=== PATIENT | female | born 1975 | race Caucasian/White ===

== ENCOUNTER 2016-11-06 12:43 | Emergency (ER) | payer BC, OTHER ==
[~2016-11-06] VITALS: Ht 165.1 cm; Wt 55.2 kg
[~2016-11-06 12:43] MED LIST: ATV5 PO; CEFOXITIN IV 2,000 MG in DEXTROSE 5% 50ML 50 ML IV SCH; GABA-112 PO; LORA-741 PO; OMEP20TA14 PO; ONDA4TAB7 SL
[2016-11-06] MEDS ORDERED: MoRPHine SULFATE 4 MG/ML 1 ML CARP\\VIAL IV STA ×2 (13:13→15:25)
[2016-11-06] MEDS ORDERED: SODIUM CHLORIDE 0.9% 1000ML 1,000 ML IV STA (13:13)
[2016-11-06] MEDS ORDERED: ACETAMINOPHEN 500 MG TAB PO STA (13:13)
[2016-11-06] MEDS ORDERED: ONDANSETRON INJ 2 MG/ML 2 ML VIAL IV STA (13:13)
[2016-11-06] MEDS ORDERED: KETOROLAC TROMETHAMINE 30 MG/ML VIAL IV STA (13:13)
[2016-11-06 13:23] LABS: URINE APPEARANCE CLEAR (CLEAR); URINE BILIRUBIN NEG (NEG); URINE COLOR YELLOW; URINE NITRITE NEG (NEG); URINE PH 6.5 (4.5-7.5); URINE SPECIFIC GRAVITY 1.023 (1.000-1.030); UROBILINOGEN NEG (NEG); ZZUR CULT IF INDIC CLEAN CATCH NO
--- NOTE | 2016-11-06 13:23 | EMERGENCY ROOM VISIT NOTE ---
History Report prepared by Tamie: Seth Munoz Under the Supervision of: Dr. Alex Almeida M.D. First contact with patient: 13:03 Chief Complaint: BACK PAIN Stated Complaint: BACK AND SIDE PAIN History of Present Illness The patient is a 41 year old white female with a past medical history of UTI's who presents to the ED with a cc of worsening low back pain beginning this morning. Positive nausea, left flank pain. Negative fever, chills, numbness, tingling, urinary symptoms, bowel issues, vaginal bleeding or discharge, trauma. She says the pain was mild initially but is now "killing" her and sharp. The patient notes that her UTI's were not like her current symptoms. She took Advil with no relief. The patient is not on any blood thinners. Source of History: patient Onset: This morning Position: back (low) Symptom Intensity: "killing her" Quality: sharp Timing: worsening Associated Symptoms: + nausea, No fevers, No chills, No urinary symptoms, No numbness Note: Associated symptoms: Left flank pain, tingling, bowel issues, vaginal bleeding or discharge. Review of Systems See HPI for pertinent positives and negatives. A total of ten systems were reviewed and were otherwise negative. Past Medical & Surgical Medical Problems: (1) History of - tubal ligation (2) No chronic diseases present (3) No significant past medical history (4) UTI (urinary tract infection) (5) Vertigo Surgical Problems: (1) History of hysterectomy Family History Hypertension Seizures Social History Smoking Status: Never Smoker Alcohol Use: none Marital Status: Occupation Status: unemployed Current/Historical Medications Scheduled Cetirizine Hcl (Zyrtec), 10 MG PO DAILY Dicyclomine Hcl (Bentyl), 10 MG PO BID Gabapentin (Neurontin), 100 MG PO HS Lorazepam (Ativan *), 0.5 MG PO DAILY PRN Lorazepam (Ativan), 0.5 MG PO QAM Montelukast Sodium (Singulair), 10 MG PO QAM Omeprazole (Prilosec), 40 MG PO QAM Triamcinolone Acetonide (Nasal (Nasacort Allergy 24Hr), 1 SPRAY MADINA BID Allergies Coded Allergies: Dust (Verified Allergy, Unknown, ,, 11/06/16) Molds and Smuts (Verified Allergy, Unknown, ., 11/06/16) Physical Exam Vital Signs Date Time Temp Pulse Resp B/P (MAP) Pulse Ox O2 Delivery O2 Flow Rate FiO2 11/06/16 16:27 105 16 114/70 100 Room Air 11/06/16 14:42 92 18 108/64 100 Room Air 11/06/16 13:47 83 11/06/16 13:35 90 16 118/76 100 Room Air 11/06/16 12:59 36.3 112 22 119/83 100 Room Air Physical Exam GENERAL: Awake, alert, uncomfortable, in pain. HENT: Normocephalic, atraumatic. EYES: Sclera non-icteric. RESPIRATORY: CTAB, no rhonchi, wheezing, crackles CARDIAC: Regular and tachy, no MRG ABDOMEN: Soft, NTND, BS+ MSK: TTTP in left low back. No chest wall TTP, no LE edema. No erythema, calor or fluctuance. NEURO: GCS 15, CN 2-12 intact, moves all 4s on command. Neg straight leg raise, sensation and motor intact distally. SKIN: No rash or jaundice noted. Medical Decision & Procedures ER Provider Diagnostic Interpretation: US: Radiology results as stated below per my review and radiologist interpretation (RENAL)RETROPERITON COMP CLINICAL HISTORY: 41 years-old Female presenting with L sided flank pain. TECHNIQUE: Real-time grayscale and limited color Doppler ultrasound imaging of the kidneys and bladder was performed. COMPARISON: CT from 02/28/2012. FINDINGS: Right kidney: Normal echogenicity. Right kidney measures 12.0 cm. No hydronephrosis. No convincing evidence of calculus or mass. Normal perfusion. Left kidney: Normal echogenicity. Left kidney measures 11.2 cm. No hydronephrosis. No convincing evidence of calculus or mass. Normal perfusion. Bladder: Decompressed. Other: Incidental note made of prominent left ovary measuring 4.6 x 2.9 x 3.9 cm with multiple prominent peripheral follicles. Calculated left ovarian volume 27 mL. Blunted arterial and venous spectral Doppler waveforms within the ovarian parenchyma. IMPRESSION: 1. Mildly prominent left ovary with a volume of 27 mL, consistent with mild enlargement. Given the borderline nature of these findings, this is equivocal for ovarian torsion. Continued clinical follow-up with possible dedicated pelvic imaging could be considered as clinically warranted. 2. Normal kidneys. Electronically signed by: Blair Wylie M.D. 11/06/2016 2:30 PM Dictated Date/Time: 11/06/2016 2:26 PM Laboratory Results 11/06/16 13:27 Red Blood Count 4.35, Mean Corpuscular Volume 93.8, Mean Corpuscular Hemoglobin 32.2, Mean Corpuscular Hemoglobin Concent 34.3, Mean Platelet Volume 11.8, Neutrophils (%) (Auto) 86.5, Lymphocytes (%) (Auto) 7.0, Monocytes (%) (Auto) 5.7, Eosinophils (%) (Auto) 0.0, Basophils (%) (Auto) 0.2, Neutrophils # (Auto) 9.72, Lymphocytes # (Auto) 0.79, Monocytes # (Auto) 0.64, Eosinophils # (Auto) 0.00, Basophils # (Auto) 0.02 11/06/16 13:27 Test 11/06/16 13:16 11/06/16 13:27 Urine Color YELLOW Urine Appearance CLEAR (CLEAR) Urine pH 6.5 (4.5-7.5) Urine Specific Bedias 1.023 (1.000-1.030) Urine Protein NEG (NEG) Urine Glucose (UA) NEG (NEG) Urine Ketones TRACE (NEG) Urine Occult Blood NEG (NEG) Urine Nitrite NEG (NEG) Urine Bilirubin NEG (NEG) Urine Urobilinogen NEG (NEG) Urine Leukocyte Esterase NEG (NEG) Urine Test NEG (NEG) White Blood Count 11.24 K/uL (4.8-10.8) Red Blood Count 4.35 M/uL (4.2-5.4) Hemoglobin 14.0 g/dL (12.0-16.0) Hematocrit 40.8 % (37-47) Mean Corpuscular Volume 93.8 fL (80-100) Mean Corpuscular Hemoglobin 32.2 pg (25-34) Mean Corpuscular Hemoglobin Concent 34.3 g/dl (32-36) Platelet Count 219 K/uL (130-400) Mean Platelet Volume 11.8 fL (7.4-10.4) Neutrophils (%) (Auto) 86.5 % Lymphocytes (%) (Auto) 7.0 % Monocytes (%) (Auto) 5.7 % Eosinophils (%) (Auto) 0.0 % Basophils (%) (Auto) 0.2 % Neutrophils # (Auto) 9.72 K/uL (1.4-6.5) Lymphocytes # (Auto) 0.79 K/uL (1.2-3.4) Monocytes # (Auto) 0.64 K/uL (0.11-0.59) Eosinophils # (Auto) 0.00 K/uL (0-0.5) Basophils # (Auto) 0.02 K/uL (0-0.2) RDW Standard Deviation 43.8 fL (36.4-46.3) RDW Coefficient of Variation 12.6 % (11.5-14.5) Immature Granulocyte % (Auto) 0.6 % Immature Granulocyte # (Auto) 0.07 K/uL (0.00-0.02) Anion Gap 7.0 mmol/L (3-11) Est Creatinine Clear Calc Drug Dose 78.4 ml/min Estimated GFR () 101.5 Estimated GFR (Non- 87.6 BUN/Creatinine Ratio 17.6 (10-20) Calcium Level 8.6 mg/dl (8.5-10.1) Total Bilirubin 0.9 mg/dl (0.2-1) Direct Bilirubin 0.2 mg/dl (0-0.2) Aspartate Amino Transf (AST/SGOT) 10 U/L (15-37) Alanine Aminotransferase (ALT/SGPT) 18 U/L (12-78) Alkaline Phosphatase 38 U/L (45-117) Total Protein 7.2 gm/dl (6.4-8.2) Albumin 3.9 gm/dl (3.4-5.0) Lipase 114 U/L (73-393) Laboratory results reviewed by me Medications Administered Medications (Trade) Dose Ordered Sig/Holly Route Start Time Stop Time Status Last Admin Dose Admin Sodium Chloride 1,000 ml @ 999 mls/hr Q1H1M STAT IV 11/06/16 13:13 11/06/16 14:13 DC 11/06/16 13:30 999 MLS/HR Ketorolac Tromethamine (Toradol Inj) 30 mg NOW STAT IV 11/06/16 13:13 11/06/16 13:18 DC 11/06/16 13:31 30 MG Morphine Sulfate (MoRPHine SULFATE INJ) 4 mg NOW STAT IV 11/06/16 13:13 9/19/17 13:18 DC 11/06/16 13:31 4 MG Acetaminophen (Tylenol Tab) 1,000 mg NOW STAT PO 11/06/16 13:13 11/06/16 13:18 DC 11/06/16 13:30 1,000 MG Ondansetron HCl (Zofran Inj) 4 mg NOW STAT IV 11/06/16 13:13 11/06/16 13:18 DC 11/06/16 13:31 4 MG Morphine Sulfate (MoRPHine SULFATE INJ) 4 mg NOW STAT IV 11/06/16 15:25 11/06/16 15:26 DC 11/06/16 15:29 4 MG Ondansetron HCl (Zofran Inj) 4 mg STK-MED ONCE .ROUTE 11/06/16 15:28 11/06/16 15:29 DC 11/06/16 15:30 4 MG ED Course 1307: The patient was evaluated in room B9. A complete history and physical exam was performed. 1509: I reevaluated the patient and her pain has improved. The patient verbally expressed understanding and agreement of the treatment plan. The patient will be evaluated for further treatment. 1512: I discussed the patient with Dr. Bella MARTINEZ - he will evaluate the patient for further treatment. 1557: The trading assistant called and said there is no flow to the left ovary. Medical Decision The patient is a 41 year old white female with a past medical history of UTI's who presents to the ED with a cc of worsening low back pain beginning this morning. Positive nausea, left flank pain. Negative fever, chills, numbness, tingling, urinary symptoms, bowel issues, vaginal bleeding or discharge, trauma. Differential diagnosis: Etiologies such as renal colic, appendicitis, diverticulitis, mesenteric ischemia, aortic pathology, infections, inflammatory bowel disease, PUD, biliary pathology, UTI, as well as others were entertained. Patient was seen and evaluated the bedside. Patient was in moderate discomfort and severe pain. Patient and symptomatic control in addition to labs and an ultrasound completed. Patient's UA was negative for infection or blood. UPT negative. Patient's popliteal count 11,000. Patient ultrasound negative for any acute renal issue; however, noted to have enlarged left ovary which concerning for possible torsion. LIP READING TEACHER was consulted. Patient was reassessed pain had improved. Patient still reproducible tenderness to palpation however. Patient had a pelvic ultrasound was ordered. The health technician called me and stated the patient had no flow to the left ovary. This was relayed to the radiologist per the tech. WOOD BARREL RECONDITIONER and are getting consulted with a concern for torsion. Patient admitted by LIP READING TEACHER and taken to OR. Medication Reconcilliation Current Medication List: was personally reviewed by me Blood Pressure Screening Patient's blood pressure: Normal blood pressure Consults Time Called: 1500 Consulting Physician: Dr. Bella MARTINEZ Returned Call: 1512 I discussed the patient with Dr. Bella MARTINEZ - he will evaluate the patient for further treatment. Impression Primary Impression: Ovarian torsion Additional Impression: Abdominal pain Critical Care I have personally spent greater than 37 minutes of critical care time in the direct management of this patient. This includes bedside care, interpretation of diagnostic studies, and testing, discussion with consultants, patient, and family members, and other required patient management activities. This 37 minutes is in excess of all separately billable procedures. Scribe Attestation The scribe's documentation has been prepared under my direction and personally reviewed by me in its entirety. I confirm that the note above accurately reflects all work, treatment, procedures, and medical decision making performed by me. Departure Information Dispostion Being Evaluated By Hospitalist Patient Instructions My [facility] Problem Qualifiers Additional Impression: Abdominal pain Abdominal location: left lower quadrant Qualified Codes: R10.32 - Left lower quadrant pain
[2016-11-06 13:25] LABS: MANUAL MICROSCOPIC REQUIRED? NO; REVIEW REQ? NO
[2016-11-06 13:45] LABS: BASO % 0.2 %; BASO ABS # 0.02 K/uL (0-0.2); COMPLETE YES; HEMATOCRIT 40.8 % (37-47); IG% 0.6 %; LYMPH ABS # 0.79 K/uL (1.2-3.4); MEAN CELL VOLUME 93.8 fL (80-100); MEAN CORPUSCULAR HEMOGLOBIN 32.2 pg (25-34); MEAN CORPUSCULAR HGB CONC 34.3 g/dl (32-36); MEAN PLATELET VOLUME 11.8 fL (7.4-10.4); MONO % 5.7 %; NEUT % 86.5 %; PLATELET COUNT 219 K/uL (130-400); RED BLOOD COUNT 4.35 M/uL (4.2-5.4); WHITE BLOOD COUNT 11.24 K/uL (4.8-10.8)
[2016-11-06 14:02] LABS: BUN/CREATININE RATIO 17.6 (10-20); CALCIUM 8.6 mg/dl (8.5-10.1); CREATININE 0.84 mg/dl (0.60-1.20); POTASSIUM 3.7 mmol/L (3.5-5.1)
--- NOTE | 2016-11-06 14:31 | DIAGNOSTIC IMAGING REPORT ---
(RENAL)RETROPERITON COMP CLINICAL HISTORY: 41 years-old Female presenting with L sided flank pain. TECHNIQUE: Real-time grayscale and limited color Doppler ultrasound imaging of the kidneys and bladder was performed. COMPARISON: CT from 02/28/2012. FINDINGS: Right kidney: Normal echogenicity. Right kidney measures 12.0 cm. No hydronephrosis. No convincing evidence of calculus or mass. Normal perfusion. Left kidney: Normal echogenicity. Left kidney measures 11.2 cm. No hydronephrosis. No convincing evidence of calculus or mass. Normal perfusion. Bladder: Decompressed. Other: Incidental note made of prominent left ovary measuring 4.6 x 2.9 x 3.9 cm with multiple prominent peripheral follicles. Calculated left ovarian volume 27 mL. Blunted arterial and venous spectral Doppler waveforms within the ovarian parenchyma. IMPRESSION: 1. Mildly prominent left ovary with a volume of 27 mL, consistent with mild enlargement. Given the borderline nature of these findings, this is equivocal for ovarian torsion. Continued clinical follow-up with possible dedicated pelvic imaging could be considered as clinically warranted. 2. Normal kidneys. Electronically signed by: Blair Wylie M.D. 11/06/2016 2:30 PM Dictated Date/Time: 11/06/2016 2:26 PM
[2016-11-06] MEDS ORDERED: MoRPHine SULFATE 4 MG/ML 1 ML CARP\\VIAL ONE (15:21)
[2016-11-06] MEDS ORDERED: ONDANSETRON INJ 2 MG/ML 2 ML VIAL ONE ×3 (15:28→18:23)
[2016-11-06] MEDS ORDERED: CETI10TA10 PO (15:34)
[2016-11-06] MEDS ORDERED: PRLSR20 PO (15:34)
[2016-11-06] MEDS ORDERED: PSEU30LI NAE (15:34)
[2016-11-06] MEDS ORDERED: DICY10CA55 PO (15:34)
[2016-11-06] MEDS ORDERED: MONT1TAB3 PO (15:34)
[2016-11-06] MEDS ORDERED: TRIA1SPR4 NAE (15:36)
--- NOTE | 2016-11-06 16:11 | DIAGNOSTIC IMAGING REPORT ---
ULTRASOUND OF THE PELVIS CLINICAL HISTORY: Pelvic pain. COMPARISON STUDY: Pelvic CT dated 02/28/2012. Pelvic ultrasound dated 02/05/2010. TECHNIQUE: Real-time, grayscale, and color flow sonography of the pelvis is performed both endovaginally. Images are reviewed in the transverse and longitudinal planes. FINDINGS: Uterus: The uterus is surgically absent Ovaries: The right ovary is normal in size and morphology, measuring 3.7 x 2.2 x 2.2 cm. There are small right-sided ovarian follicles. Normal Doppler waveforms are present in the right ovary. The left ovary appears enlarged and heterogeneous, measuring 5.0 x 2.8 x 3.3 cm. Small left ovarian follicles are identified. Normal Doppler waveforms are absent within the left ovary. Pelvis: There is a small volume of free fluid in the cul-de-sac. No concerning adnexal lesion is seen. IMPRESSION: 1. The left ovary is enlarged and heterogeneous. Normal Doppler waveforms are not identified in the left ovary and the appearance is highly concerning for portion of the left ovary. Surgical consultation is advised. 2. The right ovary is normal in appearance. 3. The uterus is surgically absent. 4. There is a small volume of nonspecific free fluid in the cul-de-sac. Electronically signed by: Moshe Cid M.D. 11/06/2016 4:10 PM Dictated Date/Time: 11/06/2016 4:07 PM
[2016-11-06] MEDS ORDERED: LACTATED RINGER'S 1000ML 1,000 ML IV SCH (17:06)
[2016-11-06] MEDS ORDERED: BUPIVACAINE/EPINEPHRINE 0.5% MPF 1:200,000 30 ML VIAL ONE (17:14)
[2016-11-06 17:18] VITALS: Ht 165.1 cm; Wt 55.2 kg
[2016-11-06 17:25] VITALS: O2SAT 100
--- NOTE | 2016-11-06 17:38 | HISTORY & PHYSICAL EXAMINATION ---
DATE OF ADMISSION: 11/06/2016 HISTORY AND PHYSICAL AND CONSULTATION HISTORY OF PRESENT ILLNESS: The patient is a 41-year-old G2, P2 who presented to the ER today with complaints of left lower flank pain. She had nausea and vomiting with the pain. She had no fever, chills, numbness or tingling. She had no urinary tract infections whatsoever. She also denied vaginal discharge or bowel problems. She was worked up for the abdominal pain. The workup included a CBC, complete chemistry, urinalysis as well as a left renal ultrasound. Renal ultrasound was unremarkable, but however, showed an enlarged left ovary. Followup pelvic ultrasound was done and the pelvic ultrasound showed a large left ovary measuring 5 x 3 x 3. There was absent doppler flow in the left ovary. The diagnosis at this point is left ovarian torsion. The patient continues to have pain and has received several narcotics for pain. Discussed findings with patient and patient wishes to undergo left salpingo-oophorectomy. PAST MEDICAL HISTORY: 1. History of tubal ligation. 2. History of UTIs. 3. History of vertigo. PAST SURGICAL HISTORY: The patient has had hysterectomy in the past for menorrhagia, failed endometrial ablation. ALLERGIES: THE PATIENT IS ALLERGIC TO MOLD, DUST AND SMUTS. SOCIAL HISTORY: The patient denies tobacco, drug or alcohol use. MEDICATIONS: The patient is on omeprazole, Singulair, lorazepam, Bentyl and Zyrtec. FAMILY HISTORY: Noncontributory. PHYSICAL EXAMINATION: GENERAL: Well-developed, well-nourished white female in no acute distress. VITAL SIGNS: Temperature is 36.3, blood pressure is 114/70, pulse is 92. HEART: S1, S2, regular rhythm and rate. LUNGS: Clear to auscultation bilaterally. ABDOMEN: There is no guarding or rebound. PELVIC: The patient has moderate tenderness as I palpate the left lower abdomen. The right side of the abdomen is unremarkable. EXTREMITIES: No cyanosis, clubbing or edema. LABORATORY DATA: WBC is 11.2, hemoglobin is 14, hematocrit is 40.8, Complete chemistries unremarkable. ASSESSMENT AND PLAN: A 41-year-old status post hysterectomy with left lower quadrant pain. Ultrasound shows suspicious for a left ovarian torsion. The patient wishes to have surgery. She therefore consented for laparoscopic left salpingo-oophorectomy, possible laparotomy, possible cystoscopy. We discussed risks of surgery including infection, bleeding, damage to adjacent structures. CONSENT: Consent is signed and patient has agreed to proceed with surgery. JEMAL
[2016-11-06] MEDS ORDERED: FENTANYL CITRATE INJ 50 MCG/1 ML 2 ML VIAL ONE ×2 (17:40→18:24)
[2016-11-06] MEDS ORDERED: MIDAZOLAM HCL 1 MG/ML 2ML VIAL ONE (17:40)
[2016-11-06] MEDS ORDERED: CEFAZOLIN 2000 MG/60 ML D5W 60 ML IV SCH (17:45)
[2016-11-06] MEDS ORDERED: SUCCINYLCHOLINE CHLORIDE 20 MG/ML 10 ML VIAL IV ONE (17:45)
[2016-11-06] MEDS ORDERED: PROPOFOL IV EMULSION 10 MG/ML 20 ML VIAL IV ONE (17:45)
[2016-11-06] MEDS ORDERED: LIDOCAINE HCL 2% 2 ML VIAL (20MG/ML) ONE (17:45)
[2016-11-06] MEDS ORDERED: SCOPOLAMINE 1.5 MG TDSY TD ONE (17:46)
[2016-11-06] MEDS ORDERED: NURSING VERBAL MED ORDER ONE (18:00)
[2016-11-06] MEDS ORDERED: DEXAMETHASONE SOD INJ 4 MG/ML VIAL ONE (18:13)
[2016-11-06] MEDS ORDERED: KETOROLAC TROMETHAMINE 30 MG/ML VIAL ONE ×2 (18:24→18:37)
[2016-11-06] MEDS ORDERED: ONDANSETRON INJ 2 MG/ML 2 ML VIAL IV PRN ×2 (18:30→20:30)
[2016-11-06] MEDS ORDERED: FLUMAZENIL 0.1 MG/1 ML 10 ML VIAL IV PRN (18:30)
[2016-11-06] MEDS ORDERED: PHENYLEPHRINE 100MCG/ML 5ML SYR IV PRN (18:30)
[2016-11-06] MEDS ORDERED: HYDROmorphone INJ 2 MG/ML SYR/VIAL IV PRN (18:30)
[2016-11-06] MEDS ORDERED: NALOXONE HCL 0.4 MG/1 ML VIAL/CARP IV PRN (18:30)
[2016-11-06] MEDS ORDERED: FENTANYL CITRATE INJ 50 MCG/1 ML 2 ML VIAL IV PRN (18:30)
[2016-11-06] MEDS ORDERED: MEPERIDINE HCL 25 MG/ML CARP IV PRN (18:30)
[2016-11-06] MEDS ORDERED: LABETALOL HCL IV 5 MG/ML 20ML IV PRN (18:30)
[2016-11-06] MEDS ORDERED: EpHEDrine SULFATE INJ 50 MG/ML AMP IV PRN (18:30)
[2016-11-06] MEDS ORDERED: ATROPINE SULFATE 0.1 MG/ML 5ML SYR IV PRN (18:30)
[2016-11-06] MEDS ORDERED: LARYING-O-JET KIT (LTA) ONE ×2 (18:37)
[2016-11-06] MEDS ORDERED: ROCURONIUM BROMIDE 10 MG/ML 5 ML VIAL IV ONE (18:37)
[2016-11-06] MEDS ORDERED: SODIUM CHLORIDE 0.9% 1000ML 1,000 ML IV SCH (20:26)
[2016-11-06] MEDS ORDERED: OXYC-57 PO (20:28)
[2016-11-06] MEDS ORDERED: KETOROLAC TROMETHAMINE 30 MG/ML VIAL IV. PRN (20:30)
[2016-11-06] MEDS ORDERED: METOCLOPRAMIDE HCL INJ 5 MG/ML 2 ML VIAL IV PRN (20:30)
[2016-11-06] MEDS ORDERED: IBUPROFEN 600 MG TAB PO PRN (20:30)
[2016-11-06] MEDS ORDERED: OXYCODONE/ACETAMINOPHEN 5-325 TAB PO PRN ×2 (20:30)
--- NOTE | 2016-11-06 20:30 | Discharge Instructions ---
Discharge Instructions Date of Service Nov 06, 2016. Admission Reason for Admission: Back And Side Pain Discharge Discharge Diagnosis / Problem: postop Discharge Goals Goal(s): Routine recovery after surgery Activity Recommendations Activity Limitations: as noted below ACTIVITY RECOMMENDATIONS: * Rest the first 2-3 days. You should be back to your normal activity levels by day 3. * No heavy lifting for 2 weeks. * No intercourse, tampons or douching for 1-2 weeks. * You may shower the next day. * Do not drive anytime that you are taking narcotic pain medicines. RETURN TO SCHOOL/WORK: * May return to school or work after 2-3 days. DIET: Nausea may occur in the immediate post-operative period. If so, take clear liquids such as tea, bouillon, apple juice until all nausea has subsided, then resume usual diet. MEDICATIONS: Resume previous medications unless instructed otherwise by your surgeon. Ibuprofen 200mg 2-3 tablets every 4-6 hours as needed -- OR -- Aleve 2 tablets every 8-12 hours as needed for post-operative discomfort Medications are over the counter. Tylenol may be used if above medications are contraindicated or not preferred. Medication should be taken with food or milk. Do not take on an empty stomach. SPECIAL CARE INSTRUCTIONS: * Check temperature twice daily for one week. report any elevation over 101 degrees. * You may experience some vagina spotting and/or bleeding. This is normal for 1 -2 weeks and should not be heavier than a normal period. If it is unusual in amount, call your physician. * Post-operative discomfort may consist of a sore throat, a "bloated" feeling and pain in the shoulders. these are normal symptoms, which usually only last for 2-3 days. * Remove band-aids tomorrow and shower. There is no need to replace band-aids unless there is drainage or discomfort. FOLLOW UP VISIT: Call your doctor's office for a post-operative 2 week visit if not already scheduled. . Current Hospital Diet Patient's current hospital diet: Discharge Diet Recommended Diet: Regular Diet Procedures Procedures Performed: Laparoscopic Left Salpingo-Oophorectomy Pending Studies Studies pending at discharge: no Medical Emergencies . Who to Call and When: Medical Emergencies: If at any time you feel your situation is an emergency, please call 911 immediately. . Non-Emergent Contact Non-Emergency issues call your: Specialist . . "Provider Documentation" section prepared by Philip Blanco. . VTE Core Measure Inpt VTE Proph given/why not?: Treatment not indicated
--- NOTE | 2016-11-06 20:41 | [facility] Post Operative Brief Note ---
Immediate Operative Summary Operative Date Nov 06, 2016. Pre-Operative Diagnosis Left Ovarian Torsion Post-Operative Diagnosis Left Ovarian Torsion Procedure(s) Performed Laparoscopic Left Salpingo-Oophorectomy Surgeon Dr. Blanco Metal Engraver Surgeon(s) none Estimated Blood Loss 50cc Findings dictated Fluids (cc crystalloids) 1600 Specimens A. Left Adnexa Drains none Anesthesia general Complication(s) None Disposition Recovery Room / PACU
--- NOTE | 2016-11-06 20:45 | Anesthesiology Progress Note ---
Anesthesia Post Op Note Date & Time Nov 06, 2016 at 20:45 Vital Signs Pain Intensity: 0 Vital Signs Past 12 Hours Date Time Temp Pulse Resp B/P (MAP) Pulse Ox O2 Delivery O2 Flow Rate FiO2 11/06/16 20:36 114/64 11/06/16 20:35 101 16 11/06/16 20:35 101 16 100 11/06/16 20:31 116/70 11/06/16 20:30 91 18 11/06/16 20:30 92 18 100 11/06/16 20:26 116/63 11/06/16 20:25 108 99 11/06/16 20:25 36.2 93 16 116/63 100 Mask 10 11/06/16 20:25 109 11/06/16 17:40 36.8 101 16 121/86 (98) 100 Room Air 11/06/16 17:25 107 16 112/72 100 11/06/16 17:19 107 16 112/72 100 Room Air 11/06/16 17:18 Room Air 11/06/16 16:27 105 16 114/70 100 Room Air 11/06/16 14:42 92 18 108/64 100 Room Air 11/06/16 13:47 83 11/06/16 13:35 90 16 118/76 100 Room Air 11/06/16 12:59 36.3 112 22 119/83 100 Room Air Notes Mental Status: alert / awake / arousable, participated in evaluation Pt Amnestic to Procedure: Yes Nausea / Vomiting: adequately controlled Pain: adequately controlled Airway Patency, RR, SpO2: stable & adequate BP & HR: stable & adequate Hydration State: stable & adequate Anesthetic Complications: no major complications apparent
[2016-11-06 21:09] VITALS: BP 117/76; PULSE 85; TEMP 36.6; O2SAT 100
--- NOTE | 2016-11-07 08:08 | OPERATIVE REPORT ---
DATE OF OPERATION: 11/06/2016 INDICATION FOR SURGERY: This is a 41-year-old who presented to the Emergency Room with left lower abdominal and back pain. Workup included an ultrasound that showed possible left ovarian torsion. PREOPERATIVE DIAGNOSES: 1. Left lower abdominal and back pain. 2. Suspicious for ovarian torsion. POSTOPERATIVE DIAGNOSIS: Left ovarian torsion. PROCEDURES: 1. Diagnostic laparoscopy. 2. Operative laparoscopy. 3. Laparoscopic left salpingo-oophorectomy. SURGEON: Dr. Blanco. FUNERAL HOME LOCATION MANAGER: None. ESTIMATED BLOOD LOSS: 50 mL. INTRAVENOUS FLUIDS: 1600 mL. FINDINGS: Normal female escutcheon. No lesions in the vulva or vagina. Abdominal findings showed the left adnexa which appeared to have been torsed. It had a black to black appearance to it, demonstrating lack of blood supply. The patient had other several adhesions in the pelvis and some endometrial implants though this patient had had a previous hysterectomy. Rest of the abdominal exam and pelvic exam was unremarkable. The left ureter was clearly visible. SPECIMEN: Left tube and ovary. DRAINS: None. ANESTHESIA: General. COMPLICATIONS: None. URINE OUTPUT: 100 mL clear urine at end of the procedure. DISPOSITION: Stable to recovery room. PROCEDURE IN DETAIL: The patient was taken to the operating room where she was prepped and draped in normal sterile fashion. A timeout was called. A catheter was placed in the bladder. A sponge stick was placed in the vagina to help manipulate pelvic structures if needed since patient had had a hysterectomy. An infraumbilical incision was made with a scalpel and a Veress needle was introduced into the abdomen at a 45-degree angle while tenting up the abdomen. Intra-abdominal placement was confirmed with a water filled syringe. The abdomen was insufflated to 3 liters. The Veress needle was removed and 10 mm trocar introduced into the abdomen under direct visualization. Once inside the abdomen, the laparoscope was repositioned. Two accessory ports were placed on the left and right lower pelvis. This was done under direct visualization. Once inside the abdomen, the findings are as dictated above. The patient was placed in Trendelenburg position. The left ureter was clearly visible. The torsed ovary which now had a black-blue appearance was clearly seen. A probe was passed through the right lateral port. This was used to grab the ovary. The 5 mm LigaSure was passed through the contralateral port and the pedicle transected. The LigaSure was removed and an Endobag was passed through the port. The specimen was placed in the port and easily removed and sent to pathology. Copious amount of irrigation was used to irrigate the abdomen. There was good hemostasis. Instruments removed from the abdomen. All 3 trocars were removed, all 3 incisions were closed in 2 layers with 0 Vicryl used to close the fascia and skin closed with 4-0 Monocryl. The Em catheter was removed from the bladder as well as the sponge stick and sponge in the vagina. All instruments are accounted for x2. The patient is sent to recovery in stable condition. I attest to the content of the Intraoperative Record and any orders documented therein. Any exception s are noted below.
== END 2016-11-06 22:00 | disposition home or self-care (01) ==
LOC: C.EDB 12:45
DX: N83.512 Torsion of left ovary and ovarian pedicle (principal); K21.9 Gastro-esophageal reflux disease without esophagitis; Z87.440 Personal history of urinary (tract) infections; Z90.710 Acquired absence of both cervix and uterus; Z82.49 Family history of ischemic heart disease and other diseases of the circulatory system

== ENCOUNTER 2016-12-29 12:35 | Emergency (ER) | payer BC ==
[~2016-12-29] VITALS: Ht 165.1 cm; Wt 56.3 kg
[~2016-12-29 12:35] MED LIST changes: -CEFOXITIN IV 2,000 MG in DEXTROSE 5% 50ML 50 ML IV SCH; +CETI10TA10 PO; +DICY10CA55 PO; +MONT1TAB3 PO; -OMEP20TA14 PO; -ONDA4TAB7 SL; +OXYC-57 PO; +PRLSR20 PO; +TRIA1SPR4 NAE
[2016-12-29 12:38] VITALS: TEMP 36.7; Ht 165.1 cm; Wt 56.3 kg
[2016-12-29] MEDS ORDERED: DIPHTHERIA/TETANUS/PERTUSSIS 0.5 ML SYR/VIAL IM. ONE (13:15)
--- NOTE | 2016-12-29 13:40 | DIAGNOSTIC IMAGING REPORT ---
R FINGER(S) MIN 2 VIEWS ROUTINE CLINICAL HISTORY: 41 years-old Female presenting with R 3rd acrylic fingernail laceration - R/O underlying fx. TECHNIQUE: Frontal, oblique, and lateral views of the right third finger were obtained. COMPARISON: None. FINDINGS: Radiolucency across the right third finger nail. No subjacent soft tissue emphysema or acute osseous injury is evident. No radiographic soft tissue abnormality. IMPRESSION: No acute osseous injury of the right third finger subjacent to the fingernail laceration. Electronically signed by: Blair Wylie M.D. 12/29/2016 1:39 PM Dictated Date/Time: 12/29/2016 1:37 PM
[2016-12-29 13:51] VITALS: BP 117/74; PULSE 94; O2SAT 98
--- NOTE | 2016-12-29 15:53 | EMERGENCY ROOM VISIT NOTE ---
History First contact with patient: 12:48 Chief Complaint: FINGER PAIN Stated Complaint: BROKEN NAIL History of Present Illness The patient is a 41 year old female who presents to the Emergency Room with complaints of an injury to her right third finger after the finger got pinched in a bedroom door. The patient reports that she has acrylic nails, and the nail broke in half. She also noticed some blood from under the nail. She rates her discomfort a 3 out of 10, with significantly elevated pain with any pressure on the tip of the nail. She denies any pain extending into the proximal finger or hand. She denies paresthesias or numbness of the fingertip. She rates her discomfort a 3 out of 10. Patient is uncertain of her last tetanus immunization. Review of Systems 10 system review was performed and was negative except for pertinent positives and negatives as indicated in history of present illness Past Medical/Surgical History Medical Problems: (1) History of - tubal ligation (2) No chronic diseases present (3) No significant past medical history (4) UTI (urinary tract infection) (5) Vertigo Surgical Problems: (1) History of hysterectomy Family History Hypertension Seizures Social History Smoking Status: Never Smoker Alcohol Use: none Marital Status: Occupation Status: unemployed Current/Historical Medications Scheduled Cetirizine Hcl (Zyrtec), 10 MG PO DAILY Dicyclomine Hcl (Bentyl), 10 MG PO BID Gabapentin (Neurontin), 100 MG PO HS Lorazepam (Ativan *), 0.5 MG PO DAILY PRN Lorazepam (Ativan), 0.5 MG PO QAM Montelukast Sodium (Singulair), 10 MG PO QAM Omeprazole (Prilosec), 40 MG PO QAM Triamcinolone Acetonide (Nasal (Nasacort Allergy 24Hr), 1 SPRAY MADINA BID Scheduled PRN Oxycodone/Acetaminophen 5MG/325MG (Percocet 5MG/325MG), 1-2 TABLETS PO Q4H PRN for Pain Physical Exam Vital Signs Date Time Temp Pulse Resp B/P (MAP) Pulse Ox O2 Delivery O2 Flow Rate FiO2 12/29/16 13:51 94 18 117/74 98 12/29/16 12:38 36.7 102 18 115/70 98 Room Air Physical Exam CONSTITUTIONAL: Healthy and well nourished. Alert and oriented X 3 with positive affect. Patient does not appear in any acute distress. HEENT: Normocephalic, atraumatic. Pupils equal, round and reactive. NECK: Full active range of motion without discomfort. MUSCULOSKELETAL: Examination of the right third finger shows a transverse partial fracture of the acrylic nail. It does not extend all away through the nail. Further examination shows mild bleeding from under the andreafski nail. There is no other significant soft tissue edema or ecchymosis of the fingertip. No tenderness to palpation of the DIP or PIP joint. Collateral ligaments are intact. Capillary refill is less than 2 seconds. INTEGUMENTARY: No rash or other significant dermatologic conditions noted. NEUROLOGIC: Right third fingertip is hyperesthetic. Medical Decision & Procedures ER Provider Diagnostic Interpretation: My interpretation of right third finger x-rays does not show any underlying fracture or DIP dislocation. Radiologist report is as follows: R FINGER(S) MIN 2 VIEWS ROUTINE CLINICAL HISTORY: 41 years-old Female presenting with R 3rd acrylic fingernail laceration - R/O underlying fx. TECHNIQUE: Frontal, oblique, and lateral views of the right third finger were obtained. COMPARISON: None. FINDINGS: Radiolucency across the right third finger nail. No subjacent soft tissue emphysema or acute osseous injury is evident. No radiographic soft tissue abnormality. IMPRESSION: No acute osseous injury of the right third finger subjacent to the fingernail laceration. Medications Administered Medications (Trade) Dose Ordered Sig/Holly Route Start Time Stop Time Status Last Admin Dose Admin Diphtheria/ Pertussis/Tetanus Vacc (Adacel Inj) 0.5 ml ONCE ONCE IM. 12/29/16 13:15 12/29/16 13:16 DC 12/29/16 13:25 0.5 ML ED Course Patient history and physical exam were performed. Nurse's notes were reviewed. Vital signs were reviewed and were normal. The patient was administered Adacel IM. She refused any oral analgesics. An ice pack was applied. X-rays of the right third finger were normal. Dermabond was applied to the nail to help seal the wound. I did suggest that she leave the acrylic nail in place for 2 weeks to allow for adequate healing of the underlying wound, then may have the nail removed as needed. She was instructed to return to the emergency department for any significantly worsening swelling, redness, red streaks or fever. The patient was happy with plan of care, voiced understanding of all discharge instructions, and denied any significant discomfort at the time of discharge. A metal splint and Coban tape were applied to help protect the nail and fingertip. Medical Decision Medication Reconcilliation Current Medication List: was personally reviewed by me Blood Pressure Screening Patient's blood pressure: Normal blood pressure Impression Primary Impression: Laceration of right middle finger with damage to nail Departure Information Referrals No Doctor, Assigned (PCP) Patient Instructions My [facility] Problem Qualifiers Primary Impression: Laceration of right middle finger with damage to nail Encounter type: initial encounter Foreign body presence: without foreign body Qualified Codes: S61.312A - Laceration without foreign body of right middle finger with damage to nail, initial encounter
== END 2016-12-29 13:54 | disposition home or self-care (01) ==
LOC: C.EDB 12:36 → C.EDD 13:54
DX: S61.312A Laceration without foreign body of right middle finger with damage to nail, initial encounter (principal); W23.1XXA Caught, crushed, jammed, or pinched between stationary objects, initial encounter; Z82.49 Family history of ischemic heart disease and other diseases of the circulatory system; Z82.0 Family history of epilepsy and other diseases of the nervous system